=== PATIENT | female | born 1990 | race African-American/Black ===

== ENCOUNTER 2017-06-16 19:10 | Emergency (ER) | payer OTHER ==
[~2017-06-16 19:10] MED LIST: BENZ100 PO; PENI500T PO; PRED1TAB PO
[2017-06-16 20:06] VITALS: BP 144/96; PULSE 98; RESP 16; TEMP 98.3; O2SAT 98
[2017-06-16] MEDS ORDERED: KETOROLAC TROMETHAMINE 30 MG/ML (IVP) VIAL IV PUSH ONE (22:15)
[2017-06-16 22:45] LABS: AUTOMATED NEUTROPHIL # 6.2 TH/MM3 (1.8-7.7); BASOPHIL % 0.3 % (0.0-2.0); EOSINOPHIL # 0.2 TH/MM3 (0-0.4); HEMATOCRIT 40.6 % (35.0-46.0); HEMOGLOBIN 13.2 GM/DL (11.6-15.3); LYMPH % 15.4 % (9.0-44.0); LYMPHOCYTE # 1.3 TH/MM3 (1.0-4.8); MEAN CELL VOLUME 92.1 FL (80.0-100.0); MEAN CORPUSCULAR HEMOGLOBIN 29.9 PG (27.0-34.0); MEAN CORPUSCULAR HGB CONC 32.5 % (32.0-36.0); MEAN PLATELET VOLUME 8.9 FL (7.0-11.0); MONO % 8.4 % (0.0-8.0); MONOCYTE # 0.7 TH/MM3 (0-0.9); NEUT % 73.9 % (16.0-70.0); PLATELET COUNT 221 TH/MM3 (150-450); RED BLOOD COUNT 4.41 MIL/MM3 (4.00-5.30); WHITE BLOOD COUNT 8.4 TH/MM3 (4.0-11.0)
--- NOTE | 2017-06-16 22:47 | RADRPT ---
EXAM DATE/TIME: 06/16/2017 22:17 [facility] COMPARISON: No previous studies available for comparison. INDICATIONS : Right foot swelling. MEDICAL HISTORY : Right foot swelling. SURGICAL HISTORY : None. ENCOUNTER: Initial ACUITY: 1 day PAIN SCORE: 03/21 LOCATION: Right leg. TECHNIQUE: Venous ultrasound of the leg was performed from the inguinal ligament to the proximal calf. Real-abhi e, color Doppler and spectral tracing, compression and augmentation techniques were used. FINDINGS: There is normal compressibility of the deep venous system from the inguinal region to the proximal ca lf. No echogenic clot is seen in the lumen of the common femoral, femoral, popliteal, and posterior tibial veins. There is a normal response of the venous system to proximal and distal augmentation an d respiration. CONCLUSION: No DVT. Bora Rowan MD on June 16, 2017 at 22:44 Board Certified Radiologist. This report was verified electronically.
--- NOTE | 2017-06-16 22:57 | RADRPT ---
EXAM DATE/TIME: 06/16/2017 22:32 [facility] COMPARISON: No previous studies available for comparison. INDICATIONS : Patient complains of foot pain and swelling. No known injury. MEDICAL HISTORY : None. SURGICAL HISTORY : None. ENCOUNTER: Initial ACUITY: 1 day PAIN SCORE: 6/10 LOCATION: Right Foot FINDINGS: There is a deformity at the proximal medial aspect of the fifth middle phalanx abutting the fifth PIP joint. This could represent a fracture in this region. The age of this deformity is not known. No ot her possible fractures seen. CONCLUSION: Deformity at the fifth middle phalanx at the proximal medial aspect. Bora Rowan MD on June 16, 2017 at 22:53 Board Certified Radiologist. This report was verified electronically.
[2017-06-16 23:10] LABS: ALBUMIN 3.8 GM/DL (3.4-5.0); AST (GOT) 11 U/L (15-37); BICARBONATE 26.6 MEQ/L (21.0-32.0); BLOOD UREA NITROGEN 11 MG/DL (7-18); CALCIUM 9.1 MG/DL (8.5-10.1); CHLORIDE 103 MEQ/L (98-107); CREATININE 0.72 MG/DL (0.50-1.00); GLOMERULAR FILTRATION RATE 119 ML/MIN (>89); GLUCOSE,RANDOM 74 MG/DL (74-106); SODIUM (NA) 137 MEQ/L (136-145)
[2017-06-16 23:13] LABS: ALKALINE PHOSPHATASE 39 U/L (45-117); ALT (GPT) 15 U/L (10-53); TOTAL BILIRUBIN ADULT 0.4 MG/DL (0.2-1.0); TOTAL PROTEIN 7.9 GM/DL (6.4-8.2)
--- NOTE | 2017-06-16 23:52 | PD ---
HPI Chief Complaint: Edema Time Seen by Provider: 21:44 Travel History International Travel<30 days: No Contact w/Intl Traveler<30days: No Traveled to known affect area: No History of Present Illness HPI Patient is a 27 year old female who comes in complaining of pain and swelling to her right foot for a few days. She denies any injury or break in her skin. She denies fever or chills. She says she took an aspirin for pain, which did not help much. She denies other symptoms such as chest pain or SOB. Severity is mild to moderate. PFSH Past Medical History Medical History: Denies Significant Hx Diminished Hearing: No ?: Not LMP: 06/06/17 : 0 Past Surgical History Surgical History: No Previous Surgery Social History Alcohol Use: No Tobacco Use: No Substance Use: No Allergies-Medications (Allergen,Severity, Reaction): Coded Allergies: No Known Allergies (Unverified , 08/27/15) Reported Meds & Prescriptions Reported Meds & Active Scripts Active Tessalon Perles (Benzonatate) 100 Mg Cap 200 Mg PO TID PRN Reported Prednisone 1 Mg Tab 5 Mg PO Pen Vk (Penicillin V Potassium) 500 Mg Tab 500 Mg PO BID Review of Systems Except as stated in HPI: all other systems reviewed are Neg General / Constitutional: No: Fever, Chills HENT: No: Headaches, Lightheadedness Cardiovascular: No: Chest Pain or Discomfort Respiratory: No: Shortness of Breath Musculoskeletal: Positive: Pain Skin: Positive Change in Pigmentation Physical Exam Narrative GENERAL: Awake and alert, in no acute distress. SKIN: Focused skin assessment warm/dry. Erythema to the dorsal surface of the right foot. Mild erythema around the right 4th and 5th toes. HEAD: Atraumatic. Normocephalic. EYES: Pupils equal and round. No scleral icterus. ENT: Mucous membranes pink and moist. NECK: Trachea midline. No JVD. CARDIOVASCULAR: Regular rate and rhythm. No murmur appreciated. RESPIRATORY: No accessory muscle use. Clear to auscultation. Breath sounds equal bilaterally. MUSCULOSKELETAL: No obvious deformities. No clubbing. No cyanosis. Mild edema of the right foot, pedal pulses intact. NEUROLOGICAL: Awake and alert. No obvious cranial nerve deficits. Motor grossly within normal limits. Normal speech. PSYCHIATRIC: Appropriate mood and affect; insight and judgment normal. Data Data Last Documented VS Vital Signs Date Time Temp Pulse Resp B/P (MAP) Pulse Ox O2 Delivery O2 Flow Rate FiO2 06/16/17 20:06 98.3 98 16 144/96 (112) 98 Orders Orders Iv Access Insert/Monitor (06/16/17 22:08) Complete Blood Count With Diff (06/16/17 22:08) Comprehensive Metabolic Panel (06/16/17 22:08) Foot, Complete ([id number]) (06/16/17 ) Us Leg Venous Doppler (06/16/17 ) Ed Urine Pregnancytest Poc (06/16/17 22:08) Ketorolac Inj (Toradol Inj) (06/16/17 22:15) Labs Laboratory Tests Test 06/16/17 22:00 White Blood Count 8.4 TH/MM3 Red Blood Count 4.41 MIL/MM3 Hemoglobin 13.2 GM/DL Hematocrit 40.6 % Mean Corpuscular Volume 92.1 FL Mean Corpuscular Hemoglobin 29.9 PG Mean Corpuscular Hemoglobin Concent 32.5 % Red Cell Distribution Width 13.0 % Platelet Count 221 TH/MM3 Mean Platelet Volume 8.9 FL Neutrophils (%) (Auto) 73.9 % Lymphocytes (%) (Auto) 15.4 % Monocytes (%) (Auto) 8.4 % Eosinophils (%) (Auto) 2.0 % Basophils (%) (Auto) 0.3 % Neutrophils # (Auto) 6.2 TH/MM3 Lymphocytes # (Auto) 1.3 TH/MM3 Monocytes # (Auto) 0.7 TH/MM3 Eosinophils # (Auto) 0.2 TH/MM3 Basophils # (Auto) 0.0 TH/MM3 CBC Comment DIFF FINAL Differential Comment Blood Urea Nitrogen 11 MG/DL Creatinine 0.72 MG/DL Random Glucose 74 MG/DL Total Protein 7.9 GM/DL Albumin 3.8 GM/DL Calcium Level 9.1 MG/DL Alkaline Phosphatase 39 U/L Aspartate Amino Transf (AST/SGOT) 11 U/L Alanine Aminotransferase (ALT/SGPT) 15 U/L Total Bilirubin 0.4 MG/DL Sodium Level 137 MEQ/L Potassium Level 3.8 MEQ/L Chloride Level 103 MEQ/L Carbon Dioxide Level 26.6 MEQ/L Anion Gap 7 MEQ/L Estimat Glomerular Filtration Rate 119 ML/MIN MDM Medical Decision Making Medical Screen Exam Complete: Yes Emergency Medical Condition: Yes Medical Record Reviewed: Yes Differential Diagnosis cellulitis vs DVT vs fracture Narrative Course Patient is a 27-year-old female comes in complaining of pain and swelling to her right foot. Exam shows erythema and swelling of the foot. IV established, labs sent. Labs show no acute abnormalities. Patient given Toradol for pain. Ultrasound performed shows no evidence of DVT. X-ray of the foot shows a deformity of the right fifth toe, unknown age. Patient denies any injury, is not tender there. I believe this is old. Last 24 hours Impressions Lower Extremity Ultrasound 06/16/17 0000 Signed Impressions: Service Date/Time: Friday, June 16, 2017 22:17 - CONCLUSION: No DVT. Bora Rowan MD Foot X-Ray 06/16/17 0000 Signed Impressions: Service Date/Time: Friday, June 16, 2017 22:32 - CONCLUSION: Deformity at the fifth middle phalanx at the proximal medial aspect. Bora Rowan MD She will be discharged with prescription for Keflex. Advised to take all of the antibiotics. Advised to return anytime for any worsening symptoms. Diagnosis Primary Impression: Cellulitis Qualified Codes: L03.115 - Cellulitis of right lower limb Patient Instructions: Cellulitis (ED), General Instructions Additional Instructions: Take all of your antibiotic. Take Tylenol or ibuprofen as needed for pain. Return anytime for any worsening symptoms. Scripts Cephalexin (Keflex) 500 Mg Capsule 500 MG PO Q6H for Infection for 7 Days, #28 CAP 0 Refills Prov: Mary Berg MD 06/16/17 Disposition: 01 DISCHARGE HOME Condition: Stable Mary Berg MD Jun 16, 2017 23:51
[2017-06-16] MEDS ORDERED: CEPH-460 PO (23:59)
== END 2017-06-17 00:17 | disposition home or self-care (01) ==
LOC: NEPC 19:10
DX: L03.115 Cellulitis of right lower limb (principal); M20.61 Acquired deformities of toe(s), unspecified, right foot
CPT/HCPCS: 73630; 80053; 84703; 85025; 93971; 96374; 99284; J1885